=== PATIENT | male | born 1985 | race Caucasian/White ===

== ENCOUNTER → 2019-12-24 | Outpatient (CLI) | payer OTHER ==
--- NOTE | 2019-12-24 11:47 | KCIC ---
AP and frog-leg lateral views of the right hip were obtained. History: right-sided hip pain worse in the last month with chronic pain for years Comparison: none. No fracture is seen about the right proximal femur acetabulum. The femoral head is located in the acetabulum. No significant degenerative changes are seen. Impression: 1. Negative exam of the right hip. Electronically signed by: Tad Blum MD (12/24/2019 11:44 AM) [id number]
== END | disposition home or self-care (01) ==
LOC: KCIC 11:13
PROVIDERS: ATTEND Family Medicine
DX: M25.551 Pain in right hip (principal)
CPT/HCPCS: 73502